=== PATIENT | male | born 1950 | race Caucasian/White ===

== ENCOUNTER 2019-04-27 06:00 | Day surgery (SDC) | payer MEDICARE, OTHER ==
[~2019-04-27 06:00] MED LIST: ANCEF/STERILE WATER 2 GM/20 ML 2 GM/20 ML SYRINGE IV NR; LACTATED RINGERS 1,000 ML IV SCH; NEURONTIN PO SCH; PEPCID IV SCH; TYLENOL PO ONE
[2019-04-27] MEDS ORDERED: DILAUDID ONE (07:18)
[2019-04-27] MEDS ORDERED: XYLOCAINE MPF 2% ONE (07:19)
[2019-04-27] MEDS ORDERED: ZEMURON IV ONE (07:19)
[2019-04-27] MEDS ORDERED: DIPRIVAN 10 MG/ML IV ONE (07:19)
--- NOTE | 2019-04-27 07:20 | Anesthesia Consultation ---
Anesthesia Consult and Med Hx Date of service: 04/27/19 - Airway Anesthetic Teeth Evaluation: Dentures ROM Head & Neck: Adequate Mallampati Class: Class II Intubation Access Assessment: Good - Pulmonary Exam CTA: Yes - Cardiac Exam Cardiac Exam: RRR - Pre-Operative Health Status ASA Pre-Surgery Classification: ASA2 Proposed Anesthetic Plan: General (Otherwise healthy except chronic smoker, quit 5 days ago ) - Pulmonary Hx Smoking: Yes (SINCE 20'S; STOPPED 04/23/19 (1PACK/WEEK)) Hx Asthma: Yes ( A CHILD) - Central Nervous System Hx Psychiatric Problems: No - Gastrointestinal Hx Gastroesophageal Reflux Disease: Yes - Other Systems Hx Alcohol Use: Yes (occasional)
[2019-04-27] MEDS ORDERED: ZOFRAN IV PRN (07:21)
[2019-04-27] MEDS ORDERED: DILAUDID IV PRN (07:21)
[2019-04-27] MEDS ORDERED: XYLOCAINE 1% 20 mL ONE (07:22)
[2019-04-27] MEDS ORDERED: MARCAINE 0.5% INFILTRATI ONE ×2 (07:23→08:22)
[2019-04-27] MEDS ORDERED: VERSED ONE (07:30)
--- NOTE | 2019-04-27 07:50 | Short Stay Summary ---
Short Stay Documentation Date of service: 04/27/19 - History H&P: obtained from office Past Medical History: No medical history Past Surgical History: No surgical history - Allergies and Medications Current Medications: Allergies No Known Allergies Allergy (Verified 04/26/19 12:00) Home Medications Medication Instructions Recorded Confirmed Last Taken Type Omeprazole Magnesium [PriLOSEC Otc] 20 mg PO QDAY 04/26/19 04/26/19 Unknown History Active Medications Celecoxib (Celebrex) 200 mg PO PREOP NR Stop: 04/27/19 23:59 Last Admin: 04/27/19 06:57 Dose: 200 mg Documented by: Famotidine (Pepcid) 20 mg IV BID RUSS Last Admin: 04/27/19 07:28 Dose: 20 mg Documented by: Gabapentin (Neurontin) 900 mg PO PREOP RUSS Last Admin: 04/27/19 06:55 Dose: 900 mg Documented by: Hydromorphone HCl (Dilaudid) 0.5 mg IV Q10MIN PRN PRN Reason: Pain , Severe (7-10) Stop: 04/27/19 20:00 Lactated Ringer's (Lactated Ringers) 1,000 mls @ 42 mls/hr IV DIRECT RUSS Last Admin: 04/27/19 06:58 Dose: 42 mls/hr Documented by: Cefazolin Sodium (Ancef/Sterile Water 2 Gm/20 Ml) 2 gm in 20 mls @ 80 mls/hr IV PREOP NR; Protocol Stop: 04/27/19 23:59 Ondansetron HCl (Zofran) 4 mg IV ONCE PRN PRN Reason: Nausea And Vomiting Stop: 04/27/19 16:00 - Physical exam General appearance: no acute distress Lungs: Clear to auscultation, Normal air movement Heart: Regular rate Gastrointestinal: normal, no tenderness Male Genitourinary: left inguinal hernia Neurological: Normal speech - Brief post op/procedure progress note Date of procedure: 04/27/19 (dictation:[id number]) Pre-op diagnosis: Incarcerated LIH Post-op diagnosis: other (Incarcerated sliding Left inguinal-scrotal hernia) Procedure: robotic assisted LIH repair IVF - 1200cc EBL min UOP 200cc Anesthesia: GETA Findings: large, incarcerated LIH with part of sigmoid colon in hernia Surgeon: JOSE ANGEL EUBANKS Estimated blood loss: minimal Pathology: none Condition: stable - Hospital course Hospital course: uneventful - Disposition Condition at discharge: Stable Disposition: DC-01 TO HOME OR SELFCARE Short Stay Discharge Plan Activity: other (no driving until cleared by surgeon) Wound: open to air, keep clean and dry Additional Instructions: Post Operative Instructions No driving until cleared by surgeon. May shower tomorrow. Pat dry the wound or wounds. After surgery, start with a light diet. Consider having a liquid diet first. If you do well, you can advance to a regular diet as you feel comfortable. Apply an ice pack to the wound or wounds for 10-20 minutes at a time. Do this at least 4-5 times a day. You can do it more if he would like. Alternate the use of ibuprofen and Tylenol for the first 2 days. I want you to take these on a scheduled basis. Take 600 mg of ibuprofen every 6 hours. Take 500 mg of Tylenol every 6 hours. You should alternate these 2 medicines. In other words, beginning with the ibuprofen. After 3 hours, take the Tylenol. Keep alternating the 2 drugs every 3 hours. Do this on a scheduled basis for the first 2 days. After that, you can take them as needed. It is very important that you use the prescription pain medicine only for very severe pain. Do not take the prescription medicine before you try using the ibuprofen and Tylenol. We will call you in a couple of days to see how youre doing. If you have any questions or concerns, always feel free to call the clinic at any time. NO HEAVY LIFTING Follow up with: [facility] [Other] - 7 Days JOSE ANGEL EUBANKS MD [Staff Physician] - 7 Days Forms: Outpatient Surgery DC Inst. Prescriptions: HYDROcodone/APAP 5-325 [[place] 5/325] 1 each PO Q6HR PRN #30 tablet PRN Reason: Pain , Severe (7-10)
[2019-04-27] MEDS ORDERED: XYLOCAINE 1% 20 mL INFILTRATI ONE (08:22)
[2019-04-27] MEDS ORDERED: WATER FOR IRRIG STERILE IR ONE (08:25)
[2019-04-27] MEDS ORDERED: NACL 0.9% IR ONE (08:25)
[2019-04-27] MEDS ORDERED: LACTATED RINGERS 1,000 ML ONE (10:12)
[2019-04-27] MEDS ORDERED: ZOFRAN ONE (10:56)
[2019-04-27] MEDS ORDERED: TORADOL ONE ×2 (10:56)
--- NOTE | 2019-04-27 13:39 | Post Anesthesia Evaluation ---
- Post Anesthesia Evaluation Patient Participated: Yes Airway Patent: Yes Stable Respiratory Function: Yes Nausea/Vomiting: No Temp > 96.8F: Yes Pain Manageable: Yes Adequeate Hydration: Yes Anesthesia Complications: No Block Receding Appropriately: Not Applicable Patient on Ventilator: Yes
--- NOTE | 2019-04-27 13:39 | Anesthesia Day of Surgery ---
Anesthesia Day of Surgery - Day of Surgery Patient Examined: Yes Patient H&P Reviewed: Yes Patient is NPO: Yes
[2019-04-27 13:48] VITALS: BP 126/80
--- NOTE | 2019-05-02 09:34 | Operative Report ---
PREOPERATIVE DIAGNOSIS: Left inguinal scrotal hernia, incarcerated. POSTOPERATIVE DIAGNOSIS: Left inguinal scrotal sliding incarcerated hernia. PROCEDURE: Robotic-assisted left inguinal hernia repair. ATTENDING PHYSICIAN: Susan Sloan MD ANESTHESIA: General. ESTIMATED BLOOD LOSS: Minimal. FLUIDS: 1200 mL. URINE OUTPUT: 200 mL. FINDINGS: The patient had a large indirect inguinal hernia that extended down to the scrotum. In the hernia sac was the sigmoid colon. It was adhered to the hernia sac. The hernia sac was densely adhered to the cord structures. SPECIMENS: None. DRAINS: None. COMPLICATIONS: None. CONDITION: Stable and transferred to recovery room. INDICATIONS: This is a 68-year-old male who presented to the office with complaints of a progressively enlarging left inguinal hernia that causes him discomfort on occasion. Denies any bowel or bladder dysfunction. On exam, the patient had a moderate inguinoscrotal hernia that was unable to be completely reduced. The patient assessed to be in need for surgery. Procedure, risks, benefits were explained to the patient. Risks included but were not limited to infection, bleeding, pain, injury to surrounding structures, possible need for further procedures in the future, possible hernia recurrence. The patient understood and consented. Of note, the patient had a smoking history. We discussed in the office that he needs to have stopped smoking for at least 2 weeks prior to surgery. On the morning of surgery, he said he stopped about 4 days ago. He said he knew he is supposed to do 2 weeks, but he had forgotten. We discussed that there were increased risks involved for patients that do not stop smoking at least 2 weeks prior to surgery. He said he understood and still wished to proceed with surgery. DESCRIPTION OF PROCEDURE: The patient was brought to the operating room and placed on the table in supine position. After adequate general anesthesia was established, the patient was prepped and draped in the usual sterile fashion. Antibiotics had been administered prior to start of the case. SCDs were in place. Timeout was done. I placed a Veress needle in the left upper quadrant. I was able to insufflate on the first attempt. This was then replaced with a 5 mm port that was placed using the Optiview technique. I entered the peritoneal cavity safely. There was no injury to the surrounding structures. Under direct vision, I placed a 12 mm port in the midline. I placed another 8-mm port on the right side of the abdomen. I placed a long 8 mm port on the left flank and then replaced the 5 mm port under direct vision with another 8. We could see the large left inguinal hernia that had incarcerated contents. I tried to push the contents back and I got a little bit of the fat in. I was able to use a laparoscopic atraumatic grasper to pull a little bit more of fat back into the peritoneal cavity; however, I was unable to get it completely reduced. I felt that a left medium sized mesh would be sufficient. This along with sutures were passed into the abdomen and left on the right side. We then proceeded to dock the robot. The patient was placed in a Trendelenburg position. Robot was docked and I proceeded to the console. I began by trying to reduce the contents. Of note, the patient had signs of perhaps a developing inguinal hernia on the right. Mild indentation was seen, but no true hernia was appreciated yet. I did discuss this with his at the end of the case that this is something that may develop over the next few years and if so, then we should repair at that time. Using a combination of gentle traction as well as adhesiolysis, I was able to completely reduce the contents. Part of the adhesions were to the inguinal sac itself; therefore, I felt at this point, I should work on trying to dissect the sac out. I began creating my preperitoneal flap about 5 cm superior to the top of the internal ring. I was able to create a very nice flap extending down to Alex's ligament as well as laterally. Once we had done the dissection on the medial and lateral sides of the hernia sac, I then proceeded to try to take down the hernia sac. This was an incredibly long sac that was densely adhered. A lot of time was spent trying to dissect the sac away. I have the extra robotic arm in this case just to maintain traction on the hernia sac so that we could dissect it off. Ultimately, I believed I was able to get most of the sac dissected off, but I felt the adhesions to the cord structures were just too dense that if I should continue, then I was going to do permanent damage to the structures. Therefore, I decided to leave a portion of the sac and I just divided it. At this point in the case, we clearly had reduced everything. There was nothing within the sac anymore that was very evident. I then proceeded to divide the sac with the electrocautery. Once the sac was divided, I then was able to dissect it back from the cord structures very nicely. At the end of the dissection, we had skeletonized the cord structures very well. There was no suggestion of any residual peritoneum or sac on the cord structures. I then laid the mesh in place using a 2-0 Vicryl stitch and secured it to the Alex's ligament as well as 1 stitch laterally. It laid very nicely across the internal ring as well as the cord structures. I then proceeded to close the peritoneum using a 3-0 V-Loc stitch. I closed the initial opening that had created with a running stitch where I had divided the sac. There was so much excess sac at this point that this was closed very easily with another 3-0 Vicryl V-Loc stitch. Of note, there was a cord lipoma that was dissected back. I pulled this back through the opening that I created in the hernia sac and incorporated that into my repair so that it would not go underneath the mesh that I had just laid. Everything appeared to lay very nicely. I was very pleased with the end result. At this point, we then converted back to laparoscopic. The robot was undocked. I removed all the needles. Everything was hemostatic. It looked very good. We tried to decompress as much air as possible that was filled in the scrotum. Abdomen was desufflated. All ports were removed. We removed as much of the air from the scrotum as we could. Testicles were in their normal position. Additional local was injected into all sites. Then 4-0 Monocryl was used to close the skin sites with interrupted subcuticular stitches. I did not close the fascia at the 12 mm port site as I had inserted it in a tangential manner, which I believe should minimize the chance that he will get a hernia at that location. The skin was cleaned and dried. Dermabond was placed. The patient tolerated the procedure well. There were no complications. All counts were correct at the end of the case. I spoke with the at the end of the case. JOB# [id number] KALI/AQUILES
== END 2019-04-27 13:25 | disposition home or self-care (01) ==
LOC: OR 06:00
PROVIDERS: ATTEND Surgery
DX: K40.30 Unilateral inguinal hernia, with obstruction, without gangrene, not specified as recurrent (principal); J45.909 Unspecified asthma, uncomplicated; K21.9 Gastro-esophageal reflux disease without esophagitis; F17.210 Nicotine dependence, cigarettes, uncomplicated; Z87.442 Personal history of urinary calculi; Z72.89 Other problems related to lifestyle; Z98.890 Other specified postprocedural states; Z79.899 Other long term (current) drug therapy
CPT/HCPCS: 49650; C1781; J0690; J1170; J1885; J2250; J2405; J2704; J7120